=== PATIENT | male | born 2000 | race Caucasian/White ===

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

== ENCOUNTER 2022-09-18 11:05 | Emergency (ER) | payer MEDICAID ==
[~2022-09-18] VITALS: Ht 188 cm; Wt 59.0 kg
[~2022-09-18 11:05] MED LIST changes: +SERT-413 PO; -SERT50TA9 PO
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
[2022-09-18] MEDS ORDERED: CYCLOBENZAPRINE 10 MG (FLEXERIL) TAB PO ONE (12:15)
[2022-09-18] MEDS ORDERED: KETOROLAC 60 MG/2 ML VIAL IM ONE (12:15)
[2022-09-18] MEDS ORDERED: ACETAMINOPHEN 325 MG TABLET PO ONE (12:15)
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
[2022-09-18] MEDS ORDERED: HYDROcodone/APAP 7.5 MG/325 MG (LORTAB, LORCET PLUS) TABLET PO ONE (14:45)
[2022-09-18 14:53] VITALS: BP 146/97
== END 2022-09-18 14:53 | disposition short-term general hospital (02) ==
LOC: EDUNIT# 11:05 → ER 11:07
DX: S32.019A Unspecified fracture of first lumbar vertebra, initial encounter for closed fracture (principal); S20.211A Contusion of right front wall of thorax, initial encounter; Z28.310 Unvaccinated for COVID-19; V89.2XXA Person injured in unspecified motor-vehicle accident, traffic, initial encounter; Y92.410 Unspecified street and highway as the place of occurrence of the external cause
CPT/HCPCS: 70450; 72125; 72128; 72131; 96372